=== PATIENT | male | born 1970 | race Caucasian/White ===

== ENCOUNTER 2019-08-14 16:10 | Inpatient (IN) | payer MEDICAID ==
[~2019-08-14] VITALS: Ht 172.7 cm; Wt 122.0 kg
[~2019-08-14 16:10] MED LIST: ATOR40TA78 PO; BUME1TAB21 PO; CARV3.1212 PO; ERGO500017 PO; FERR-51 PO; FLUT16SP24 NAS; HYDR-3343 PO; INSU100I13 SQ-INSULIN; IPRA3AMP30 HHN; ISOS30TA8 PO; LISI5TAB7 PO; METO2.5T PO; SEVE800T8 PO; TAMS-11 PO; Tamsulosin PO
--- NOTE | 2019-08-14 16:44 | NUR ---
SHORTNESS OF BREATH DEVELOPING SINCE LAST NIGHT WITH PEDAL EDEMA FOR A FEW WEEKS
[2019-08-14] MEDS ORDERED: SODIUM CHLORIDE FLUSH 10ML SYR IVF ONE (17:00)
--- NOTE | 2019-08-14 17:17 | NUR ---
ATTEMPTED TO ESTABLISH IV X2, UNSUCCESSFUL.
[2019-08-14 17:25] LABS: BASOPHILS # (AUTO) 0.04 x10^3/uL (0-0.1); BASOPHILS % (AUTO) 0 % (0-1); EOSINOPHILS # (AUTO) 0.13 x10^3/uL (0-0.4); EOSINOPHILS % (AUTO) 2 % (1-7); LYMPHOCYTES # (AUTO) 1.73 x10^3/uL (1-3.4); LYMPHOCYTES % (AUTO) 20 % (22-44); MD NO; MEAN CORPUSCULAR HEMOGLOBIN 28.5 pg (27.5-34.5); MEAN CORPUSCULAR HGB CONC 32.1 g/dL (33.2-36.2); MEAN CORPUSCULAR VOLUME 88.9 fL (81-97); MEAN PLATELET VOLUME 8.6 fL (7.4-10.4); MONOCYTES # (AUTO) 0.64 x10^3/uL (0.2-0.8); MONOCYTES % (AUTO) 7 % (2-9); NEUTROPHILS # (AUTO) 6.34 x10^3/uL (1.8-6.8); NEUTROPHILS % (AUTO) 71 % (42-75); PLATELET COUNT 201 x10^3/uL (130-400); RED CELL DISTRIBUTION WIDTH 15.6 % (9.4-14.8)
[2019-08-14 17:36] LABS: INTERNATIONAL NORMALIZED RATIO 1.06 (0.93-1.1); PROTHROMBIN TIME 11.1 Seconds (9.6-11.5)
[2019-08-14 17:38] LABS: ALANINE AMINOTRANSFERASE 20 U/L (12-78); ALBUMIN 1.6 g/dL (3.4-5.0); ANION GAP 7 mmol/L (5-15); CALCIUM 7.8 mg/dL (8.5-10.1); CHLORIDE 113 mmol/L (98-107); CREATININE 4.55 mg/dL (0.7-1.3)
[2019-08-14 17:42] LABS: ALKALINE PHOSPHATASE 105 U/L (45-117); BILIRUBIN,TOTAL 0.2 mg/dL (0.2-1.0); TOTAL PROTEIN 5.7 g/dL (6.4-8.2)
[2019-08-14 17:46] LABS: TROPONIN I 0.126 ng/mL (0.000-0.045)
[2019-08-14] MEDS ORDERED: ASPIRIN 81 MG TABLET CHEW ONE (18:05)
--- NOTE | 2019-08-14 18:17 | NUR ---
TASK RN: PT MEDICATED PER EMAR W/ ASA. ERP AT BEDSIDE TO DISCUSS POC (ADMIT), PT DEMONSTRATES UNDERSTANDING. BP/SPO2/ECG MONITORING IN PLACE. NSR ON MONITOR. RR WNL,SPO2 >90% ON RA. IV ESTABLISHED.
[2019-08-14] MEDS ORDERED: FUROSEMIDE 100 MG/10 ML IV ONE (18:30)
[2019-08-14] MEDS ORDERED: ASPIRIN 81 MG TABLET CHEW PO ONE (18:30)
[2019-08-14] MEDS ORDERED: FUROSEMIDE 40 MG/4 ML ONE (18:40)
--- NOTE | 2019-08-14 18:46 | NUR ---
hospitalist at bedside examining pt
[2019-08-14] MEDS ORDERED: ONDANSETRON ODT 4 MG PO PRN (19:00)
[2019-08-14] MEDS ORDERED: POLYETHYLENE GLYCOL 17 GM PACKET PO PRN (19:00)
[2019-08-14] MEDS ORDERED: hydrALAzine 20 MG/ML, 1ML IVPush PRN (19:00)
--- NOTE | 2019-08-14 19:00 | NUR ---
REPORT FROM SATNAM BUCKNER. PT [place]ING [place] CL[place]. EVEN/REGULAR RESPIRATIONS. SPO2 >90% ON RA. PT REPORTS SOME IMPROVEMENT IN S/S WITH MEDICATIONS. BP/SPO2/ECG MONITORING IN PLACE. NSR ON MONITOR. AWAITING ADMIT
[2019-08-14] MEDS ORDERED: DEXTROSE 4 GM TAB.CHEW PO PRN (19:30)
[2019-08-14] MEDS ORDERED: TAMSULOSIN 0.4 MG CAP.ER.24H PO ONE (19:30)
[2019-08-14] MEDS ORDERED: DEXTROSE 50%, 50ML SYRINGE IVPush PRN (19:30)
[2019-08-14] MEDS ORDERED: GLUCAGON 1 MG IM PRN (19:30)
--- NOTE | 2019-08-14 19:49 | NUR ---
REPORT TO VELASQUEZ PATEL RN. PT PREPARED FOR TRANSPORT.
[2019-08-14 20:37] VITALS: BP 165/99
[2019-08-14 20:57] VITALS: BP 165/99
[2019-08-14] MEDS ORDERED: ATORVASTATIN 10 MG TABLET PO SCH (21:00)
[2019-08-14] MEDS: HEPARIN 5,000 UNITS/ML, 1ML SQ SCH (21:26)
[2019-08-14] MEDS: GABAPENTIN 100 MG CAPSULE PO SCH (21:27)
[2019-08-14] MEDS: SODIUM CHLORIDE FLUSH 10ML SYR IVF SCH (21:28)
[2019-08-14] MEDS: INSULIN LISPRO 100 UNITS/ML, PEN SQ-INSULIN SCH (21:28)
[2019-08-14] MEDS ORDERED: ALBUTEROL/IPRATROPIUM 2.5MG/0.5MG, 3 ML ONE (21:40)
[2019-08-14] MEDS: INSULIN GLARGINE 100 UNITS/ML, PEN SQ-INSULIN SCH (23:02)
[2019-08-15 02:59] VITALS: BP 150/92
[2019-08-15] MEDS: HEPARIN 5,000 UNITS/ML, 1ML SQ SCH ×3 (04:24→20:18)
[2019-08-15 05:19] LABS: BASOPHILS # (AUTO) 0.09 x10^3/uL (0-0.1); BASOPHILS % (AUTO) 1 % (0-1); EOSINOPHILS # (AUTO) 0.07 x10^3/uL (0-0.4); EOSINOPHILS % (AUTO) 1 % (1-7); LYMPHOCYTES # (AUTO) 1.96 x10^3/uL (1-3.4); LYMPHOCYTES % (AUTO) 23 % (22-44); MD NO; MEAN CORPUSCULAR HEMOGLOBIN 28.4 pg (27.5-34.5); MEAN CORPUSCULAR HGB CONC 32.7 g/dL (33.2-36.2); MEAN CORPUSCULAR VOLUME 86.8 fL (81-97); MEAN PLATELET VOLUME 8.7 fL (7.4-10.4); MONOCYTES # (AUTO) 0.72 x10^3/uL (0.2-0.8); MONOCYTES % (AUTO) 9 % (2-9); NEUTROPHILS # (AUTO) 5.51 x10^3/uL (1.8-6.8); NEUTROPHILS % (AUTO) 66 % (42-75); PLATELET COUNT 185 x10^3/uL (130-400)
[2019-08-15 05:34] LABS: ALBUMIN 1.7 g/dL (3.4-5.0); ANION GAP 6 mmol/L (5-15); CALCIUM 7.6 mg/dL (8.5-10.1); CHLORIDE 113 mmol/L (98-107)
[2019-08-15 05:36] LABS: CREATININE 4.44 mg/dL (0.7-1.3)
[2019-08-15] MEDS ORDERED: ALBUTEROL/IPRATROPIUM 2.5MG/0.5MG, 3 ML NPPB SCH (07:00)
[2019-08-15 07:21] VITALS: BP 156/104
[2019-08-15] MEDS: INSULIN LISPRO 100 UNITS/ML, PEN SQ-INSULIN SCH ×4 (07:56→20:18)
[2019-08-15] MEDS: FLUTICASONE NASAL SPRAY 16GM NAS SCH ×2 (09:00→20:00)
[2019-08-15] MEDS ORDERED: SODIUM BICARBONATE 650 MG TABLET PO SCH (09:00)
[2019-08-15] MEDS: TAMSULOSIN 0.4 MG CAP.ER.24H PO SCH (09:19)
[2019-08-15] MEDS: ISOSORBIDE MONONITRATE ER 30 MG TABLET PO SCH (09:19)
[2019-08-15] MEDS: SODIUM CHLORIDE FLUSH 10ML SYR IVF SCH ×2 (09:20→20:29)
[2019-08-15] MEDS: ASPIRIN 81 MG TABLET CHEW PO SCH (09:20)
[2019-08-15] MEDS: FUROSEMIDE 40 MG/4 ML IV SCH ×2 (09:20→17:04)
[2019-08-15] MEDS: SENNA/DOCUSATE TABLET PO SCH (09:25)
[2019-08-15] MEDS: CALCIUM ACETATE 667 MG CAPSULE PO SCH ×3 (10:22→20:28)
[2019-08-15] MEDS: ARANESP 100 MCG/ML **ESRD SQ SCH (10:22)
[2019-08-15] MEDS: ALBUTEROL/IPRATROPIUM 2.5MG/0.5MG, 3 ML NPPB SCH ×3 (10:25→20:36)
[2019-08-15 13:43] VITALS: BP 137/83
[2019-08-15 14:58] LABS: MICROSCOPIC AUTO
[2019-08-15 15:10] LABS: CREATININE,URINE RANDOM 49.8 mg/dL
[2019-08-15] MEDS ORDERED: TRAZODONE 50MG TABLET PO PRN (16:30)
[2019-08-15] MEDS: CARVEDILOL 6.25 MG TABLET PO SCH (17:04)
[2019-08-15] MEDS: SODIUM BICARBONATE 650 MG TABLET PO SCH (17:05)
[2019-08-15 19:00] VITALS: BP 150/90
[2019-08-15] MEDS: INSULIN GLARGINE 100 UNITS/ML, PEN SQ-INSULIN SCH (20:19)
[2019-08-15] MEDS: GABAPENTIN 100 MG CAPSULE PO SCH (20:28)
[2019-08-15] MEDS: ACETAMINOPHEN 325 MG TABLET PO PRN (20:28)
[2019-08-15] MEDS: ATORVASTATIN 40 MG TABLET PO SCH (20:28)
[2019-08-16 02:01] VITALS: BP 160/80
[2019-08-16] MEDS: ALBUTEROL/IPRATROPIUM 2.5MG/0.5MG, 3 ML NPPB SCH ×4 (02:11→18:00)
[2019-08-16] MEDS: HEPARIN 5,000 UNITS/ML, 1ML SQ SCH ×3 (05:00→21:00)
[2019-08-16 05:30] LABS: ALBUMIN 1.7 g/dL (3.4-5.0); ANION GAP 8 mmol/L (5-15); CHLORIDE 113 mmol/L (98-107); CREATININE 4.53 mg/dL (0.7-1.3)
[2019-08-16] MEDS: CARVEDILOL 6.25 MG TABLET PO SCH (05:50)
[2019-08-16] MEDS: INSULIN LISPRO 100 UNITS/ML, PEN SQ-INSULIN SCH ×4 (07:00→21:10)
[2019-08-16 07:34] VITALS: BP 156/91
[2019-08-16] MEDS: METOLAZONE 2.5 MG TABLET PO SCH (08:01)
[2019-08-16] MEDS: SODIUM BICARBONATE 650 MG TABLET PO SCH ×3 (08:01→17:08)
[2019-08-16] MEDS: CALCIUM ACETATE 667 MG CAPSULE PO SCH ×3 (08:02→20:51)
[2019-08-16] MEDS: ISOSORBIDE MONONITRATE ER 30 MG TABLET PO SCH (08:02)
[2019-08-16] MEDS: TAMSULOSIN 0.4 MG CAP.ER.24H PO SCH (08:02)
[2019-08-16] MEDS: FUROSEMIDE 40 MG/4 ML IV SCH ×2 (08:02→17:07)
[2019-08-16] MEDS: ASPIRIN 81 MG TABLET CHEW PO SCH (08:02)
[2019-08-16] MEDS: SENNA/DOCUSATE TABLET PO SCH (08:03)
[2019-08-16] MEDS: SODIUM CHLORIDE FLUSH 10ML SYR IVF SCH ×2 (09:00→20:52)
[2019-08-16] MEDS: FLUTICASONE NASAL SPRAY 16GM NAS SCH ×2 (11:00→15:01)
[2019-08-16 14:00] VITALS: BP 158/99
[2019-08-16] MEDS ORDERED: ALBUTEROL/IPRATROPIUM 2.5MG/0.5MG, 3 ML NPPB SCH (15:00)
[2019-08-16] MEDS ORDERED: ALBUTEROL SULFATE 2.5MG/0.5ML NPPB PRN (15:00)
[2019-08-16] MEDS: CARVEDILOL 12.5 MG TABLET PO SCH (16:34)
[2019-08-16] MEDS: ALBUTEROL/IPRATROPIUM 2.5MG/0.5MG, 3 ML NPPB PRN (16:51)
[2019-08-16 19:41] VITALS: BP 145/83
[2019-08-16] MEDS: INSULIN GLARGINE 100 UNITS/ML, PEN SQ-INSULIN SCH (20:50)
[2019-08-16] MEDS: GABAPENTIN 100 MG CAPSULE PO SCH (20:51)
[2019-08-16] MEDS: ATORVASTATIN 40 MG TABLET PO SCH (20:51)
[2019-08-16 23:24] VITALS: BP 126/75
[2019-08-17] MEDS: ALBUTEROL/IPRATROPIUM 2.5MG/0.5MG, 3 ML NPPB SCH ×7 (00:10→22:25)
[2019-08-17] MEDS: HEPARIN 5,000 UNITS/ML, 1ML SQ SCH ×3 (05:00→21:00)
[2019-08-17 05:32] LABS: ALBUMIN 1.7 g/dL (3.4-5.0); ANION GAP 8 mmol/L (5-15); CALCIUM 7.6 mg/dL (8.5-10.1); CHLORIDE 111 mmol/L (98-107); CREATININE 4.74 mg/dL (0.7-1.3)
[2019-08-17] MEDS: CARVEDILOL 12.5 MG TABLET PO SCH ×2 (06:28→17:53)
[2019-08-17 07:10] VITALS: BP 121/73
[2019-08-17] MEDS: INSULIN LISPRO 100 UNITS/ML, PEN SQ-INSULIN SCH ×4 (07:20→21:08)
[2019-08-17] MEDS: ISOSORBIDE MONONITRATE ER 30 MG TABLET PO SCH (08:25)
[2019-08-17] MEDS: METOLAZONE 2.5 MG TABLET PO SCH (08:25)
[2019-08-17] MEDS: ASPIRIN 81 MG TABLET CHEW PO SCH (08:25)
[2019-08-17] MEDS: CALCIUM ACETATE 667 MG CAPSULE PO SCH ×3 (08:25→21:06)
[2019-08-17] MEDS: SODIUM BICARBONATE 650 MG TABLET PO SCH ×3 (08:25→17:53)
[2019-08-17] MEDS: TAMSULOSIN 0.4 MG CAP.ER.24H PO SCH (08:25)
[2019-08-17] MEDS: FUROSEMIDE 40 MG/4 ML IV SCH ×2 (08:25→16:36)
[2019-08-17] MEDS: SENNA/DOCUSATE TABLET PO SCH (08:26)
[2019-08-17] MEDS: SODIUM CHLORIDE FLUSH 10ML SYR IVF SCH ×2 (08:30→21:00)
[2019-08-17] MEDS: FLUTICASONE NASAL SPRAY 16GM NAS SCH ×2 (09:05→21:06)
[2019-08-17 12:57] VITALS: BP 149/89
[2019-08-17 16:35] VITALS: BP 166/100
[2019-08-17] MEDS: ACETAMINOPHEN 325 MG TABLET PO PRN (16:37)
[2019-08-17 18:54] VITALS: BP 152/91
[2019-08-17] MEDS: GABAPENTIN 100 MG CAPSULE PO SCH (21:06)
[2019-08-17] MEDS: ATORVASTATIN 40 MG TABLET PO SCH (21:06)
[2019-08-17] MEDS: INSULIN GLARGINE 100 UNITS/ML, PEN SQ-INSULIN SCH (21:07)
[2019-08-17] MEDS: OXYcodone IR 5MG TABLET PO PRN (21:50)
[2019-08-18 00:15] VITALS: BP 150/88
[2019-08-18] MEDS: HEPARIN 5,000 UNITS/ML, 1ML SQ SCH ×3 (05:00→21:00)
[2019-08-18 05:37] LABS: ANION GAP 7 mmol/L (5-15); CALCIUM 7.8 mg/dL (8.5-10.1); CHLORIDE 110 mmol/L (98-107); CREATININE 4.95 mg/dL (0.7-1.3)
[2019-08-18] MEDS: CARVEDILOL 12.5 MG TABLET PO SCH (06:35)
[2019-08-18] MEDS: ALBUTEROL/IPRATROPIUM 2.5MG/0.5MG, 3 ML NPPB SCH ×4 (07:20→20:52)
[2019-08-18] MEDS: INSULIN LISPRO 100 UNITS/ML, PEN SQ-INSULIN SCH ×4 (07:38→21:00)
[2019-08-18 07:54] VITALS: BP 146/90
[2019-08-18] MEDS: SODIUM BICARBONATE 650 MG TABLET PO SCH ×3 (07:55→16:36)
[2019-08-18] MEDS: ISOSORBIDE MONONITRATE ER 30 MG TABLET PO SCH (07:55)
[2019-08-18] MEDS: TAMSULOSIN 0.4 MG CAP.ER.24H PO SCH (07:55)
[2019-08-18] MEDS: CALCIUM ACETATE 667 MG CAPSULE PO SCH ×3 (07:56→21:41)
[2019-08-18] MEDS: ASPIRIN 81 MG TABLET CHEW PO SCH (07:56)
[2019-08-18] MEDS: METOLAZONE 2.5 MG TABLET PO SCH (07:56)
[2019-08-18] MEDS: FUROSEMIDE 40 MG/4 ML IV SCH ×2 (07:58→16:36)
[2019-08-18] MEDS: SODIUM CHLORIDE FLUSH 10ML SYR IVF SCH ×2 (07:59→21:45)
[2019-08-18] MEDS: SENNA/DOCUSATE TABLET PO SCH (07:59)
[2019-08-18] MEDS: FLUTICASONE NASAL SPRAY 16GM NAS SCH ×2 (08:08→21:59)
[2019-08-18 14:15] VITALS: BP 145/79
[2019-08-18] MEDS: ALBUTEROL/IPRATROPIUM 2.5MG/0.5MG, 3 ML NPPB PRN (15:59)
[2019-08-18] MEDS ORDERED: ALBUTEROL/IPRATROPIUM 2.5MG/0.5MG, 3 ML NEB ONE (16:00)
[2019-08-18 16:34] VITALS: BP 150/89
[2019-08-18 18:01] VITALS: BP 139/82
[2019-08-18] MEDS: CARVEDILOL 25 MG TABLET PO SCH (18:02)
[2019-08-18 20:45] VITALS: BP 150/81
[2019-08-18] MEDS: ATORVASTATIN 40 MG TABLET PO SCH (21:41)
[2019-08-18] MEDS: GABAPENTIN 100 MG CAPSULE PO SCH (21:41)
[2019-08-18] MEDS: INSULIN GLARGINE 100 UNITS/ML, PEN SQ-INSULIN SCH (21:42)
[2019-08-18] MEDS: CYCLOBENZAPRINE 10 MG TABLET PO PRN (21:59)
[2019-08-19 02:01] VITALS: BP 146/88
[2019-08-19] MEDS: HEPARIN 5,000 UNITS/ML, 1ML SQ SCH ×3 (05:00→21:00)
[2019-08-19 05:19] VITALS: BP 156/94
[2019-08-19] MEDS: CARVEDILOL 25 MG TABLET PO SCH ×2 (05:21→16:39)
[2019-08-19 05:44] LABS: ANION GAP 8 mmol/L (5-15); CALCIUM 7.7 mg/dL (8.5-10.1); CHLORIDE 110 mmol/L (98-107)
[2019-08-19 05:45] LABS: CREATININE 5.26 mg/dL (0.7-1.3)
[2019-08-19] MEDS: INSULIN LISPRO 100 UNITS/ML, PEN SQ-INSULIN SCH ×4 (07:00→22:19)
[2019-08-19] MEDS: ALBUTEROL/IPRATROPIUM 2.5MG/0.5MG, 3 ML NPPB SCH ×4 (07:37→20:00)
[2019-08-19] MEDS: SENNA/DOCUSATE TABLET PO SCH (09:00)
[2019-08-19] MEDS: TAMSULOSIN 0.4 MG CAP.ER.24H PO SCH (09:05)
[2019-08-19] MEDS: SODIUM BICARBONATE 650 MG TABLET PO SCH ×3 (09:05→16:39)
[2019-08-19] MEDS: METOLAZONE 2.5 MG TABLET PO SCH (09:05)
[2019-08-19] MEDS: ASPIRIN 81 MG TABLET CHEW PO SCH (09:06)
[2019-08-19] MEDS: ISOSORBIDE MONONITRATE ER 30 MG TABLET PO SCH (09:06)
[2019-08-19] MEDS: CALCIUM ACETATE 667 MG CAPSULE PO SCH ×3 (09:06→16:39)
[2019-08-19 09:10] VITALS: BP 136/88
[2019-08-19] MEDS: CYCLOBENZAPRINE 10 MG TABLET PO PRN ×2 (09:20→22:25)
[2019-08-19] MEDS: FUROSEMIDE 40 MG/4 ML IV SCH ×2 (09:21→16:39)
[2019-08-19] MEDS: SODIUM CHLORIDE FLUSH 10ML SYR IVF SCH ×2 (09:21→21:00)
[2019-08-19] MEDS: FLUTICASONE NASAL SPRAY 16GM NAS SCH ×2 (09:27→22:12)
[2019-08-19] MEDS: GUAIFENESIN 200 MG TABLET PO SCH ×3 (11:15→22:11)
[2019-08-19 12:30] VITALS: BP 157/91
[2019-08-19] MEDS: INSULIN GLARGINE 100 UNITS/ML, PEN SQ-INSULIN SCH (21:00)
[2019-08-19 21:33] VITALS: BP 144/89
[2019-08-19] MEDS: ATORVASTATIN 40 MG TABLET PO SCH (22:12)
[2019-08-19] MEDS: MONTELUKAST 10 MG TABLET PO SCH (22:12)
[2019-08-19] MEDS: GABAPENTIN 100 MG CAPSULE PO SCH (22:20)
[2019-08-20 02:27] VITALS: BP 134/83
[2019-08-20] MEDS: HEPARIN 5,000 UNITS/ML, 1ML SQ SCH ×3 (05:00→21:00)
[2019-08-20 05:14] LABS: ANION GAP 8 mmol/L (5-15); CHLORIDE 109 mmol/L (98-107); CREATININE 5.73 mg/dL (0.7-1.3)
[2019-08-20] MEDS: GUAIFENESIN 200 MG TABLET PO SCH ×4 (05:45→22:44)
[2019-08-20] MEDS: CARVEDILOL 25 MG TABLET PO SCH ×2 (05:46→17:23)
[2019-08-20] MEDS: ALBUTEROL/IPRATROPIUM 2.5MG/0.5MG, 3 ML NPPB SCH ×3 (07:14→21:00)
[2019-08-20 07:28] VITALS: BP 126/81
[2019-08-20] MEDS: CYCLOBENZAPRINE 10 MG TABLET PO PRN ×2 (08:16→17:23)
[2019-08-20] MEDS: SENNA/DOCUSATE TABLET PO SCH (08:16)
[2019-08-20] MEDS: SODIUM BICARBONATE 650 MG TABLET PO SCH ×3 (08:16→17:23)
[2019-08-20] MEDS: INSULIN LISPRO 100 UNITS/ML, PEN SQ-INSULIN SCH ×4 (08:16→21:00)
[2019-08-20] MEDS: TAMSULOSIN 0.4 MG CAP.ER.24H PO SCH (08:16)
[2019-08-20] MEDS: CALCIUM ACETATE 667 MG CAPSULE PO SCH ×3 (08:17→17:23)
[2019-08-20] MEDS: FLUTICASONE NASAL SPRAY 16GM NAS SCH ×2 (08:17→22:45)
[2019-08-20] MEDS: SODIUM CHLORIDE FLUSH 10ML SYR IVF SCH ×2 (08:17→22:33)
[2019-08-20] MEDS: ASPIRIN 81 MG TABLET CHEW PO SCH (08:17)
[2019-08-20] MEDS: FUROSEMIDE 40 MG/4 ML IV SCH ×2 (08:17→17:22)
[2019-08-20] MEDS: ISOSORBIDE MONONITRATE ER 30 MG TABLET PO SCH (08:17)
[2019-08-20 19:49] VITALS: BP 138/83
[2019-08-20] MEDS: GABAPENTIN 100 MG CAPSULE PO SCH (22:44)
[2019-08-20] MEDS: MONTELUKAST 10 MG TABLET PO SCH (22:44)
[2019-08-20] MEDS: ATORVASTATIN 40 MG TABLET PO SCH (22:44)
[2019-08-20] MEDS: INSULIN GLARGINE 100 UNITS/ML, PEN SQ-INSULIN SCH ×2 (22:48→22:50)
[2019-08-21] MEDS: CYCLOBENZAPRINE 10 MG TABLET PO PRN ×2 (02:51→17:46)
[2019-08-21] MEDS: ALBUTEROL/IPRATROPIUM 2.5MG/0.5MG, 3 ML NPPB SCH ×4 (03:00→20:11)
[2019-08-21 03:25] LABS: ALBUMIN 1.9 g/dL (3.4-5.0); ANION GAP 5 mmol/L (5-15); CALCIUM 7.8 mg/dL (8.5-10.1); CHLORIDE 108 mmol/L (98-107); CREATININE 5.24 mg/dL (0.7-1.3)
[2019-08-21] MEDS: HEPARIN 5,000 UNITS/ML, 1ML SQ SCH ×3 (05:00→20:27)
[2019-08-21] MEDS: GUAIFENESIN 200 MG TABLET PO SCH ×4 (05:47→20:27)
[2019-08-21] MEDS: CARVEDILOL 25 MG TABLET PO SCH ×2 (05:47→17:49)
[2019-08-21 07:23] VITALS: BP 150/93
[2019-08-21] MEDS: INSULIN LISPRO 100 UNITS/ML, PEN SQ-INSULIN SCH ×4 (08:20→21:53)
[2019-08-21] MEDS: CALCIUM ACETATE 667 MG CAPSULE PO SCH ×3 (08:21→17:46)
[2019-08-21] MEDS: ASPIRIN 81 MG TABLET CHEW PO SCH (08:21)
[2019-08-21] MEDS: SENNA/DOCUSATE TABLET PO SCH (08:22)
[2019-08-21] MEDS: TAMSULOSIN 0.4 MG CAP.ER.24H PO SCH (08:22)
[2019-08-21] MEDS: SODIUM BICARBONATE 650 MG TABLET PO SCH ×3 (08:22→17:46)
[2019-08-21] MEDS: FUROSEMIDE 40 MG/4 ML IV SCH ×2 (08:22→17:00)
[2019-08-21] MEDS: SODIUM CHLORIDE FLUSH 10ML SYR IVF SCH ×2 (08:22→21:51)
[2019-08-21] MEDS: FLUTICASONE NASAL SPRAY 16GM NAS SCH ×2 (08:24→20:26)
[2019-08-21] MEDS: ISOSORBIDE MONONITRATE ER 30 MG TABLET PO SCH (09:39)
[2019-08-21 13:37] VITALS: BP 139/65
[2019-08-21] MEDS: OXYcodone IR 5MG TABLET PO PRN (17:48)
[2019-08-21 20:05] VITALS: BP 122/74
[2019-08-21] MEDS: GABAPENTIN 100 MG CAPSULE PO SCH (21:50)
[2019-08-21] MEDS: MONTELUKAST 10 MG TABLET PO SCH (21:50)
[2019-08-21] MEDS: ATORVASTATIN 40 MG TABLET PO SCH (21:51)
[2019-08-21] MEDS: INSULIN GLARGINE 100 UNITS/ML, PEN SQ-INSULIN SCH (21:53)
[2019-08-22 01:23] VITALS: BP 153/87
[2019-08-22] MEDS: ALBUTEROL/IPRATROPIUM 2.5MG/0.5MG, 3 ML NPPB SCH ×4 (03:00→20:23)
[2019-08-22] MEDS: HEPARIN 5,000 UNITS/ML, 1ML SQ SCH ×3 (05:00→20:44)
[2019-08-22] MEDS: CARVEDILOL 25 MG TABLET PO SCH ×2 (05:47→17:23)
[2019-08-22] MEDS: GUAIFENESIN 200 MG TABLET PO SCH ×4 (05:47→20:44)
[2019-08-22 07:30] LABS: ALBUMIN 1.9 g/dL (3.4-5.0); ANION GAP 6 mmol/L (5-15); CALCIUM 7.4 mg/dL (8.5-10.1); CHLORIDE 106 mmol/L (98-107); CREATININE 4.59 mg/dL (0.7-1.3)
[2019-08-22 07:59] VITALS: BP 135/84
[2019-08-22] MEDS: ASPIRIN 81 MG TABLET CHEW PO SCH (08:04)
[2019-08-22] MEDS: ISOSORBIDE MONONITRATE ER 30 MG TABLET PO SCH (08:04)
[2019-08-22] MEDS: CALCIUM ACETATE 667 MG CAPSULE PO SCH ×3 (08:04→17:23)
[2019-08-22] MEDS: FLUTICASONE NASAL SPRAY 16GM NAS SCH ×2 (08:05→20:43)
[2019-08-22] MEDS: FUROSEMIDE 40 MG/4 ML IV SCH ×2 (08:05→17:23)
[2019-08-22] MEDS: SODIUM BICARBONATE 650 MG TABLET PO SCH ×3 (08:05→17:23)
[2019-08-22] MEDS: SODIUM CHLORIDE FLUSH 10ML SYR IVF SCH ×2 (08:05→20:42)
[2019-08-22] MEDS: TAMSULOSIN 0.4 MG CAP.ER.24H PO SCH (08:05)
[2019-08-22] MEDS: INSULIN LISPRO 100 UNITS/ML, PEN SQ-INSULIN SCH ×4 (08:07→20:47)
[2019-08-22] MEDS: SENNA/DOCUSATE TABLET PO SCH (08:07)
[2019-08-22] MEDS: ARANESP 100 MCG/ML **ESRD SQ SCH (11:38)
[2019-08-22 14:03] VITALS: BP 133/78
[2019-08-22] MEDS: CYCLOBENZAPRINE 10 MG TABLET PO PRN (17:22)
[2019-08-22] MEDS: OXYcodone IR 5MG TABLET PO PRN (17:22)
[2019-08-22 19:21] VITALS: BP 132/84
[2019-08-22] MEDS: MONTELUKAST 10 MG TABLET PO SCH (20:43)
[2019-08-22] MEDS: ATORVASTATIN 40 MG TABLET PO SCH (20:43)
[2019-08-22] MEDS: GABAPENTIN 100 MG CAPSULE PO SCH (20:44)
[2019-08-22] MEDS: INSULIN GLARGINE 100 UNITS/ML, PEN SQ-INSULIN SCH (20:47)
[2019-08-23 00:53] VITALS: BP 133/82
[2019-08-23] MEDS: ALBUTEROL/IPRATROPIUM 2.5MG/0.5MG, 3 ML NPPB SCH ×4 (02:48→22:20)
[2019-08-23] MEDS: HEPARIN 5,000 UNITS/ML, 1ML SQ SCH ×5 (05:00→21:31)
[2019-08-23] MEDS: CARVEDILOL 25 MG TABLET PO SCH ×2 (05:54→21:17)
[2019-08-23] MEDS: GUAIFENESIN 200 MG TABLET PO SCH ×4 (05:54→21:15)
[2019-08-23 06:36] LABS: CALCIUM 7.5 mg/dL (8.5-10.1); CHLORIDE 105 mmol/L (98-107)
[2019-08-23 06:40] LABS: ANION GAP 7 mmol/L (5-15); CREATININE 4.83 mg/dL (0.7-1.3)
[2019-08-23] MEDS: INSULIN LISPRO 100 UNITS/ML, PEN SQ-INSULIN SCH ×4 (07:00→21:00)
[2019-08-23 07:17] VITALS: BP 136/79
[2019-08-23] MEDS: FUROSEMIDE 40 MG/4 ML IV SCH ×2 (08:33→16:59)
[2019-08-23] MEDS: CALCIUM ACETATE 667 MG CAPSULE PO SCH ×3 (08:33→16:59)
[2019-08-23] MEDS: SODIUM BICARBONATE 650 MG TABLET PO SCH (08:33)
[2019-08-23] MEDS: FLUTICASONE NASAL SPRAY 16GM NAS SCH ×2 (08:34→21:18)
[2019-08-23] MEDS: SODIUM CHLORIDE FLUSH 10ML SYR IVF SCH ×2 (08:34→21:18)
[2019-08-23] MEDS: ASPIRIN 81 MG TABLET CHEW PO SCH (08:34)
[2019-08-23] MEDS: TAMSULOSIN 0.4 MG CAP.ER.24H PO SCH (08:34)
[2019-08-23] MEDS: SENNA/DOCUSATE TABLET PO SCH (08:35)
[2019-08-23] MEDS: ISOSORBIDE MONONITRATE ER 30 MG TABLET PO SCH (08:35)
[2019-08-23] MEDS: CYCLOBENZAPRINE 10 MG TABLET PO PRN ×2 (08:36→21:31)
[2019-08-23] MEDS: ACETAMINOPHEN 325 MG TABLET PO PRN ×2 (08:36→12:47)
[2019-08-23] MEDS: BENZONATATE 100 MG CAPSULE PO PRN ×2 (12:03→21:31)
[2019-08-23 14:47] VITALS: BP 133/77
[2019-08-23] MEDS: ATORVASTATIN 40 MG TABLET PO SCH (21:17)
[2019-08-23] MEDS: GABAPENTIN 100 MG CAPSULE PO SCH (21:17)
[2019-08-23] MEDS: MONTELUKAST 10 MG TABLET PO SCH (21:17)
[2019-08-23] MEDS: INSULIN GLARGINE 100 UNITS/ML, PEN SQ-INSULIN SCH (21:30)
[2019-08-23 21:48] VITALS: BP 147/84
[2019-08-24] VITALS (7 sets, daily range): BP systolic 122–157; BP diastolic 73–84
[2019-08-24] MEDS: ALBUTEROL/IPRATROPIUM 2.5MG/0.5MG, 3 ML NPPB SCH ×4 (03:30→21:00)
[2019-08-24] MEDS: HEPARIN 5,000 UNITS/ML, 1ML SQ SCH ×3 (05:00→21:00)
[2019-08-24] MEDS: GUAIFENESIN 200 MG TABLET PO SCH ×4 (05:40→21:36)
[2019-08-24] MEDS: CARVEDILOL 25 MG TABLET PO SCH ×2 (05:41→17:15)
[2019-08-24 06:21] LABS: BASOPHILS # (AUTO) 0.04 x10^3/uL (0-0.1); BASOPHILS % (AUTO) 1 % (0-1); EOSINOPHILS # (AUTO) 0.03 x10^3/uL (0-0.4); EOSINOPHILS % (AUTO) 0 % (1-7); LYMPHOCYTES # (AUTO) 1.28 x10^3/uL (1-3.4); LYMPHOCYTES % (AUTO) 15 % (22-44); MD NO; MEAN CORPUSCULAR HEMOGLOBIN 28.9 pg (27.5-34.5); MEAN CORPUSCULAR HGB CONC 32.1 g/dL (33.2-36.2); MEAN CORPUSCULAR VOLUME 89.9 fL (81-97); MEAN PLATELET VOLUME 10.3 fL (7.4-10.4); MONOCYTES % (AUTO) 11 % (2-9); NEUTROPHILS # (AUTO) 6.35 x10^3/uL (1.8-6.8); NEUTROPHILS % (AUTO) 74 % (42-75); PLATELET COUNT 108 x10^3/uL (130-400); RED CELL DISTRIBUTION WIDTH 16.8 % (9.4-14.8)
[2019-08-24 06:34] LABS: ANION GAP 6 mmol/L (5-15); CALCIUM 7.9 mg/dL (8.5-10.1); CHLORIDE 105 mmol/L (98-107)
[2019-08-24 06:39] LABS: % IRON SATURATION 10 % (20-55); ALANINE AMINOTRANSFERASE 21 U/L (12-78); ALKALINE PHOSPHATASE 104 U/L (45-117); BILIRUBIN,TOTAL 0.3 mg/dL (0.2-1.0); CREATININE 3.78 mg/dL (0.7-1.3); IRON LEVEL 24 mcg/dL (65-175); TOTAL IRON BINDING CAPACITY 249 mcg/dL (250-450); TOTAL PROTEIN 5.6 g/dL (6.4-8.2)
[2019-08-24] MEDS: INSULIN LISPRO 100 UNITS/ML, PEN SQ-INSULIN SCH ×4 (07:00→21:39)
[2019-08-24] MEDS: SENNA/DOCUSATE TABLET PO SCH (07:35)
[2019-08-24] MEDS: CALCIUM ACETATE 667 MG CAPSULE PO SCH ×3 (07:46→17:15)
[2019-08-24] MEDS: TAMSULOSIN 0.4 MG CAP.ER.24H PO SCH (07:47)
[2019-08-24] MEDS: FUROSEMIDE 40 MG/4 ML IV SCH (07:47)
[2019-08-24] MEDS: SODIUM CHLORIDE FLUSH 10ML SYR IVF SCH ×2 (07:47→21:00)
[2019-08-24] MEDS: ACETAMINOPHEN 325 MG TABLET PO PRN (07:48)
[2019-08-24] MEDS: CYCLOBENZAPRINE 10 MG TABLET PO PRN (07:48)
[2019-08-24] MEDS: ISOSORBIDE MONONITRATE ER 30 MG TABLET PO SCH (07:48)
[2019-08-24] MEDS ORDERED: MAGNESIUM OXIDE 400 MG TABLET PO ONE (08:00)
[2019-08-24] MEDS: FLUTICASONE NASAL SPRAY 16GM NAS SCH ×2 (08:07→21:00)
[2019-08-24] MEDS: BENZONATATE 100 MG CAPSULE PO PRN (08:08)
[2019-08-24] MEDS: OXYMETAZOLINE NASAL SPRAY 0.05%, 15ML NAS SCH ×2 (11:14→21:37)
[2019-08-24] MEDS: BUMETANIDE 0.25 MG/ML, 4ML IV SCH ×2 (12:59→22:39)
[2019-08-24] MEDS: GABAPENTIN 100 MG CAPSULE PO SCH ×2 (16:23→21:35)
[2019-08-24] MEDS: BUDESONIDE 0.5 MG/2 ML INHA INH SCH (21:00)
[2019-08-24] MEDS ORDERED: GABAPENTIN 100 MG CAPSULE PO SCH (21:00)
[2019-08-24] MEDS: MONTELUKAST 10 MG TABLET PO SCH (21:35)
[2019-08-24] MEDS: ATORVASTATIN 40 MG TABLET PO SCH (21:37)
[2019-08-24] MEDS: INSULIN GLARGINE 100 UNITS/ML, PEN SQ-INSULIN SCH (21:39)
[2019-08-25 02:13] VITALS: BP 120/72
[2019-08-25] MEDS: ALBUTEROL/IPRATROPIUM 2.5MG/0.5MG, 3 ML NPPB SCH ×5 (02:18→22:27)
[2019-08-25] MEDS: HEPARIN 5,000 UNITS/ML, 1ML SQ SCH ×3 (04:19→20:20)
[2019-08-25] MEDS: CARVEDILOL 25 MG TABLET PO SCH ×2 (05:09→16:45)
[2019-08-25] MEDS: GUAIFENESIN 200 MG TABLET PO SCH ×4 (05:09→20:20)
[2019-08-25 05:36] LABS: BASOPHILS # (AUTO) 0.05 x10^3/uL (0-0.1); BASOPHILS % (AUTO) 1 % (0-1); EOSINOPHILS # (AUTO) 0.07 x10^3/uL (0-0.4); EOSINOPHILS % (AUTO) 1 % (1-7); LYMPHOCYTES # (AUTO) 1.55 x10^3/uL (1-3.4); LYMPHOCYTES % (AUTO) 17 % (22-44); MD NO; MEAN CORPUSCULAR HEMOGLOBIN 28.3 pg (27.5-34.5); MEAN CORPUSCULAR HGB CONC 32.1 g/dL (33.2-36.2); MEAN CORPUSCULAR VOLUME 88.3 fL (81-97); MEAN PLATELET VOLUME 10.2 fL (7.4-10.4); MONOCYTES # (AUTO) 1.04 x10^3/uL (0.2-0.8); MONOCYTES % (AUTO) 11 % (2-9); NEUTROPHILS % (AUTO) 71 % (42-75); PLATELET COUNT 111 x10^3/uL (130-400); RED BLOOD COUNT 3.28 x10^6/uL (4.38-5.82); RED CELL DISTRIBUTION WIDTH 16.3 % (9.4-14.8)
[2019-08-25 05:42] LABS: CHLORIDE 105 mmol/L (98-107)
[2019-08-25 05:48] LABS: ALANINE AMINOTRANSFERASE 19 U/L (12-78); ALKALINE PHOSPHATASE 101 U/L (45-117); ANION GAP 5 mmol/L (5-15); BILIRUBIN,TOTAL 0.3 mg/dL (0.2-1.0); CREATININE 4.44 mg/dL (0.7-1.3); TOTAL PROTEIN 5.5 g/dL (6.4-8.2)
[2019-08-25] MEDS: BUDESONIDE 0.5 MG/2 ML INHA INH SCH ×3 (06:30→22:27)
[2019-08-25] MEDS: INSULIN LISPRO 100 UNITS/ML, PEN SQ-INSULIN SCH ×4 (08:00→20:01)
[2019-08-25] MEDS: BUMETANIDE 0.25 MG/ML, 4ML IV SCH ×2 (08:08→22:07)
[2019-08-25] MEDS: TAMSULOSIN 0.4 MG CAP.ER.24H PO SCH (08:08)
[2019-08-25] MEDS: ISOSORBIDE MONONITRATE ER 30 MG TABLET PO SCH (08:08)
[2019-08-25] MEDS: CALCIUM ACETATE 667 MG CAPSULE PO SCH ×3 (08:08→16:45)
[2019-08-25] MEDS: GABAPENTIN 100 MG CAPSULE PO SCH ×2 (08:09→22:08)
[2019-08-25] MEDS: OXYMETAZOLINE NASAL SPRAY 0.05%, 15ML NAS SCH ×2 (08:10→22:06)
[2019-08-25] MEDS: SODIUM CHLORIDE FLUSH 10ML SYR IVF SCH ×2 (08:10→22:08)
[2019-08-25] MEDS: FLUTICASONE NASAL SPRAY 16GM NAS SCH ×2 (08:10→22:06)
[2019-08-25] MEDS: SENNA/DOCUSATE TABLET PO SCH (08:10)
[2019-08-25 09:35] VITALS: BP 127/78
[2019-08-25] MEDS: CYCLOBENZAPRINE 10 MG TABLET PO PRN ×2 (12:09→22:07)
[2019-08-25 15:33] VITALS: BP 134/79
[2019-08-25 19:59] VITALS: BP 117/72
[2019-08-25] MEDS: INSULIN GLARGINE 100 UNITS/ML, PEN SQ-INSULIN SCH (22:07)
[2019-08-25] MEDS: ATORVASTATIN 40 MG TABLET PO SCH (22:07)
[2019-08-25] MEDS: MONTELUKAST 10 MG TABLET PO SCH (22:08)
[2019-08-26] MEDS: ALBUTEROL/IPRATROPIUM 2.5MG/0.5MG, 3 ML NPPB SCH ×4 (02:27→20:24)
[2019-08-26 03:24] VITALS: BP 151/86
[2019-08-26 03:51] LABS: BASOPHILS # (AUTO) 0.03 x10^3/uL (0-0.1); BASOPHILS % (AUTO) 0 % (0-1); EOSINOPHILS # (AUTO) 0.14 x10^3/uL (0-0.4); EOSINOPHILS % (AUTO) 1 % (1-7); LYMPHOCYTES # (AUTO) 1.41 x10^3/uL (1-3.4); LYMPHOCYTES % (AUTO) 14 % (22-44); MD NO; MEAN CORPUSCULAR HEMOGLOBIN 29.4 pg (27.5-34.5); MEAN CORPUSCULAR HGB CONC 32.8 g/dL (33.2-36.2); MEAN CORPUSCULAR VOLUME 89.7 fL (81-97); MEAN PLATELET VOLUME 10.8 fL (7.4-10.4); MONOCYTES % (AUTO) 10 % (2-9); NEUTROPHILS # (AUTO) 7.71 x10^3/uL (1.8-6.8); NEUTROPHILS % (AUTO) 75 % (42-75); PLATELET COUNT 110 x10^3/uL (130-400); RED BLOOD COUNT 3.19 x10^6/uL (4.38-5.82); RED CELL DISTRIBUTION WIDTH 16.7 % (9.4-14.8)
[2019-08-26 03:57] LABS: ALBUMIN 1.9 g/dL (3.4-5.0); ANION GAP 7 mmol/L (5-15); CHLORIDE 104 mmol/L (98-107)
[2019-08-26 03:58] LABS: CREATININE 5.23 mg/dL (0.7-1.3)
[2019-08-26] MEDS: HEPARIN 5,000 UNITS/ML, 1ML SQ SCH ×3 (05:00→22:30)
[2019-08-26] MEDS: GUAIFENESIN 200 MG TABLET PO SCH ×4 (06:00→22:30)
[2019-08-26] MEDS: CARVEDILOL 25 MG TABLET PO SCH ×2 (06:14→18:10)
[2019-08-26] MEDS: BUDESONIDE 0.5 MG/2 ML INHA INH SCH ×2 (08:00→20:24)
[2019-08-26] MEDS: ISOSORBIDE MONONITRATE ER 30 MG TABLET PO SCH (08:42)
[2019-08-26] MEDS: GABAPENTIN 100 MG CAPSULE PO SCH ×2 (08:42→22:30)
[2019-08-26] MEDS: TAMSULOSIN 0.4 MG CAP.ER.24H PO SCH (08:42)
[2019-08-26] MEDS: SODIUM CHLORIDE FLUSH 10ML SYR IVF SCH ×2 (08:44→22:30)
[2019-08-26] MEDS: BUMETANIDE 0.25 MG/ML, 4ML IV SCH ×2 (08:44→22:30)
[2019-08-26] MEDS: FLUTICASONE NASAL SPRAY 16GM NAS SCH ×2 (08:44→22:30)
[2019-08-26] MEDS: OXYMETAZOLINE NASAL SPRAY 0.05%, 15ML NAS SCH ×2 (08:45→22:30)
[2019-08-26] MEDS: SENNA/DOCUSATE TABLET PO SCH (08:45)
[2019-08-26] MEDS: CALCIUM ACETATE 667 MG CAPSULE PO SCH ×3 (08:52→18:10)
[2019-08-26] MEDS: CYCLOBENZAPRINE 10 MG TABLET PO PRN (08:52)
[2019-08-26] MEDS: INSULIN LISPRO 100 UNITS/ML, PEN SQ-INSULIN SCH ×4 (08:53→22:30)
[2019-08-26 09:40] VITALS: BP 117/72
[2019-08-26] MEDS ORDERED: FENTANYL PF 100 MCG/2ML ONE (15:38)
[2019-08-26] MEDS ORDERED: MIDAZOLAM 1 MG/ML, 5ML ONE (15:38)
[2019-08-26] MEDS ORDERED: FLUMAZENIL 0.1 MG/1 ML, 5ML ONE (15:38)
[2019-08-26] MEDS ORDERED: NALOXONE 1 MG/ML, 2ML ONE (15:38)
[2019-08-26] MEDS ORDERED: LIDOCAINE 1%, 20ML ONE (15:39)
[2019-08-26] MEDS ORDERED: CEFAZOLIN PMX 1GM/50ML 50 ML ONE (16:15)
[2019-08-26 17:46] VITALS: BP 139/74
[2019-08-26 18:01] VITALS: BP 139/74
[2019-08-26 19:34] VITALS: BP 121/75
[2019-08-26] MEDS: ATORVASTATIN 40 MG TABLET PO SCH (22:30)
[2019-08-26] MEDS: MONTELUKAST 10 MG TABLET PO SCH (22:30)
[2019-08-26] MEDS: INSULIN GLARGINE 100 UNITS/ML, PEN SQ-INSULIN SCH (22:30)
[2019-08-27] MEDS: ALBUTEROL/IPRATROPIUM 2.5MG/0.5MG, 3 ML NPPB SCH ×4 (03:00→22:20)
[2019-08-27 03:58] VITALS: BP 125/60
[2019-08-27] MEDS: HEPARIN 5,000 UNITS/ML, 1ML SQ SCH ×3 (04:20→20:18)
[2019-08-27] MEDS: CARVEDILOL 25 MG TABLET PO SCH ×2 (05:25→18:00)
[2019-08-27] MEDS: GUAIFENESIN 200 MG TABLET PO SCH ×4 (05:26→20:18)
[2019-08-27 05:55] LABS: BASOPHILS # (AUTO) 0.07 x10^3/uL (0-0.1); BASOPHILS % (AUTO) 1 % (0-1); EOSINOPHILS # (AUTO) 0.07 x10^3/uL (0-0.4); EOSINOPHILS % (AUTO) 1 % (1-7); LYMPHOCYTES # (AUTO) 1.09 x10^3/uL (1-3.4); LYMPHOCYTES % (AUTO) 12 % (22-44); MD NO; MEAN CORPUSCULAR HEMOGLOBIN 28.3 pg (27.5-34.5); MEAN CORPUSCULAR VOLUME 88.5 fL (81-97); MEAN PLATELET VOLUME 10.6 fL (7.4-10.4); MONOCYTES # (AUTO) 0.95 x10^3/uL (0.2-0.8); MONOCYTES % (AUTO) 10 % (2-9); NEUTROPHILS # (AUTO) 7.17 x10^3/uL (1.8-6.8); NEUTROPHILS % (AUTO) 77 % (42-75); PLATELET COUNT 108 x10^3/uL (130-400); RED BLOOD COUNT 3.25 x10^6/uL (4.38-5.82); RED CELL DISTRIBUTION WIDTH 16.1 % (9.4-14.8)
[2019-08-27 06:05] LABS: ANION GAP 6 mmol/L (5-15); CALCIUM 7.9 mg/dL (8.5-10.1); CHLORIDE 102 mmol/L (98-107); CREATININE 4.66 mg/dL (0.7-1.3)
[2019-08-27] MEDS: BUMETANIDE 0.25 MG/ML, 4ML IV SCH ×2 (07:51→20:16)
[2019-08-27] MEDS: INSULIN LISPRO 100 UNITS/ML, PEN SQ-INSULIN SCH ×4 (07:51→20:18)
[2019-08-27] MEDS: CALCIUM ACETATE 667 MG CAPSULE PO SCH ×3 (07:52→17:00)
[2019-08-27] MEDS: ISOSORBIDE MONONITRATE ER 30 MG TABLET PO SCH (07:52)
[2019-08-27] MEDS: GABAPENTIN 100 MG CAPSULE PO SCH ×2 (07:52→20:17)
[2019-08-27] MEDS: TAMSULOSIN 0.4 MG CAP.ER.24H PO SCH (07:52)
[2019-08-27] MEDS: OXYMETAZOLINE NASAL SPRAY 0.05%, 15ML NAS SCH ×2 (07:53→20:19)
[2019-08-27] MEDS: FLUTICASONE NASAL SPRAY 16GM NAS SCH ×2 (07:53→20:19)
[2019-08-27 07:54] VITALS: BP 138/81
[2019-08-27] MEDS: SODIUM CHLORIDE FLUSH 10ML SYR IVF SCH ×2 (07:54→20:19)
[2019-08-27] MEDS: SENNA/DOCUSATE TABLET PO SCH (09:00)
[2019-08-27] MEDS: BUDESONIDE 0.5 MG/2 ML INHA INH SCH ×2 (09:07→22:20)
[2019-08-27 14:20] VITALS: BP 125/78
[2019-08-27] MEDS ORDERED: GABAPENTIN 100 MG CAPSULE PO ONE (16:00)
[2019-08-27] MEDS: BENZONATATE 100 MG CAPSULE PO PRN ×2 (16:32→21:06)
[2019-08-27 19:03] VITALS: BP 120/71
[2019-08-27] MEDS: MONTELUKAST 10 MG TABLET PO SCH (20:16)
[2019-08-27] MEDS: ATORVASTATIN 40 MG TABLET PO SCH (20:17)
[2019-08-27] MEDS: CYCLOBENZAPRINE 10 MG TABLET PO PRN (20:17)
[2019-08-27] MEDS: INSULIN GLARGINE 100 UNITS/ML, PEN SQ-INSULIN SCH (21:00)
[2019-08-28] MEDS: CYCLOBENZAPRINE 10 MG TABLET PO PRN ×2 (00:20→08:00)
[2019-08-28] MEDS: HEPARIN 5,000 UNITS/ML, 1ML SQ SCH ×2 (05:00→12:16)
[2019-08-28] MEDS: GUAIFENESIN 200 MG TABLET PO SCH ×3 (05:03→16:00)
[2019-08-28] MEDS: ALBUTEROL/IPRATROPIUM 2.5MG/0.5MG, 3 ML NPPB SCH ×2 (05:13→15:00)
[2019-08-28] MEDS: BUDESONIDE 0.5 MG/2 ML INHA INH SCH (05:13)
[2019-08-28 05:21] VITALS: BP 127/73
[2019-08-28 05:21] LABS: BASOPHILS # (AUTO) 0.02 x10^3/uL (0-0.1); BASOPHILS % (AUTO) 0 % (0-1); EOSINOPHILS # (AUTO) 0.11 x10^3/uL (0-0.4); EOSINOPHILS % (AUTO) 1 % (1-7); LYMPHOCYTES # (AUTO) 1.28 x10^3/uL (1-3.4); LYMPHOCYTES % (AUTO) 14 % (22-44); MD NO; MEAN CORPUSCULAR HEMOGLOBIN 28.6 pg (27.5-34.5); MEAN CORPUSCULAR VOLUME 89.3 fL (81-97); MEAN PLATELET VOLUME 11.1 fL (7.4-10.4); MONOCYTES # (AUTO) 1.31 x10^3/uL (0.2-0.8); MONOCYTES % (AUTO) 14 % (2-9); NEUTROPHILS # (AUTO) 6.42 x10^3/uL (1.8-6.8); NEUTROPHILS % (AUTO) 70 % (42-75); PLATELET COUNT 115 x10^3/uL (130-400); RED BLOOD COUNT 3.19 x10^6/uL (4.38-5.82); RED CELL DISTRIBUTION WIDTH 16.4 % (9.4-14.8)
[2019-08-28] MEDS: CARVEDILOL 25 MG TABLET PO SCH (05:27)
[2019-08-28 05:28] LABS: CHLORIDE 99 mmol/L (98-107)
[2019-08-28 05:33] LABS: ANION GAP 6 mmol/L (5-15); CALCIUM 7.8 mg/dL (8.5-10.1); CREATININE 4.34 mg/dL (0.7-1.3)
[2019-08-28] MEDS: INSULIN LISPRO 100 UNITS/ML, PEN SQ-INSULIN SCH ×3 (07:58→16:00)
[2019-08-28] MEDS: CALCIUM ACETATE 667 MG CAPSULE PO SCH ×2 (07:59→12:00)
[2019-08-28] MEDS: BUMETANIDE 0.25 MG/ML, 4ML IV SCH (07:59)
[2019-08-28] MEDS: OXYMETAZOLINE NASAL SPRAY 0.05%, 15ML NAS SCH (08:00)
[2019-08-28] MEDS: GABAPENTIN 100 MG CAPSULE PO SCH (08:00)
[2019-08-28] MEDS: ISOSORBIDE MONONITRATE ER 30 MG TABLET PO SCH (08:00)
[2019-08-28] MEDS: SODIUM CHLORIDE FLUSH 10ML SYR IVF SCH (08:00)
[2019-08-28] MEDS: BENZONATATE 100 MG CAPSULE PO PRN (08:00)
[2019-08-28] MEDS: FLUTICASONE NASAL SPRAY 16GM NAS SCH (08:01)
[2019-08-28] MEDS: TAMSULOSIN 0.4 MG CAP.ER.24H PO SCH (08:01)
[2019-08-28] MEDS: SENNA/DOCUSATE TABLET PO SCH (08:01)
[2019-08-28 08:02] VITALS: BP 120/76
[2019-08-28 14:14] VITALS: BP 153/76
[2019-08-28] MEDS ORDERED: INSU100I13 SQ-INSULIN (17:44)
[2019-08-28] MEDS ORDERED: BUDE10.2 INH (17:44)
[2019-08-28] MEDS ORDERED: CARV25TA12 PO (17:44)
[2019-08-28] MEDS ORDERED: CALC667C PO (17:44)
[2019-08-28] MEDS ORDERED: HYDR-3342 PO (17:44)
[2019-08-28] MEDS ORDERED: CYCL-259 PO (17:44)
[2019-08-28] MEDS ORDERED: BUME1TAB21 PO (17:44)
[2019-08-28] MEDS ORDERED: GABA-826 PO (17:44)
== END 2019-08-28 18:30 | disposition home or self-care (01) | DRG 673 ==
LOC: ED 18:15 → EDIP 19:47 → 5SO 20:11 → 4EST 08-24 16:54
PROVIDERS: ADMIT Family Medicine; ATTEND Family Medicine
PROC: 02HV33Z Insertion of Infusion Device into Superior Vena Cava, Percutaneous Approach (ICD-10-PCS; principal; 2019-08-20)
PROC: B548ZZA Ultrasonography of Superior Vena Cava, Guidance (ICD-10-PCS; 2019-08-20)
PROC: 5A1D70Z Performance of Urinary Filtration, Intermittent, Less than 6 Hours Per Day (ICD-10-PCS; 2019-08-20)
PROC: 5A1D70Z Performance of Urinary Filtration, Intermittent, Less than 6 Hours Per Day (ICD-10-PCS; 2019-08-21)
PROC: 5A1D70Z Performance of Urinary Filtration, Intermittent, Less than 6 Hours Per Day (ICD-10-PCS; 2019-08-23)
PROC: 0JH63XZ Insertion of Tunneled Vascular Access Device into Chest Subcutaneous Tissue and Fascia, Percutaneous Approach (ICD-10-PCS; 2019-08-26)
PROC: 02HV33Z Insertion of Infusion Device into Superior Vena Cava, Percutaneous Approach (ICD-10-PCS; 2019-08-26)
PROC: B5181ZA Fluoroscopy of Superior Vena Cava using Low Osmolar Contrast, Guidance (ICD-10-PCS; 2019-08-26)
PROC: B548ZZA Ultrasonography of Superior Vena Cava, Guidance (ICD-10-PCS; 2019-08-26)
PROC: 5A1D70Z Performance of Urinary Filtration, Intermittent, Less than 6 Hours Per Day (ICD-10-PCS; 2019-08-26)
PROC: 5A1D70Z Performance of Urinary Filtration, Intermittent, Less than 6 Hours Per Day (ICD-10-PCS; 2019-08-27)
PROC: 5A1D70Z Performance of Urinary Filtration, Intermittent, Less than 6 Hours Per Day (ICD-10-PCS; 2019-08-28)
DX: N17.9 Acute kidney failure, unspecified (principal); I50.43 Acute on chronic combined systolic (congestive) and diastolic (congestive) heart failure; J18.9 Pneumonia, unspecified organism; J96.01 Acute respiratory failure with hypoxia; I13.2 Hypertensive heart and chronic kidney disease with heart failure and with stage 5 chronic kidney disease, or end stage renal disease; F15.20 Other stimulant dependence, uncomplicated; J44.0 Chronic obstructive pulmonary disease with (acute) lower respiratory infection; I42.9 Cardiomyopathy, unspecified; N18.6 End stage renal disease; N25.81 Secondary hyperparathyroidism of renal origin; D63.8 Anemia in other chronic diseases classified elsewhere; E78.5 Hyperlipidemia, unspecified; E83.39 Other disorders of phosphorus metabolism; E83.42 Hypomagnesemia; E11.22 Type 2 diabetes mellitus with diabetic chronic kidney disease; E86.9 Volume depletion, unspecified; Z72.0 Tobacco use; Z79.82 Long term (current) use of aspirin; Z79.4 Long term (current) use of insulin; Z80.6 Family history of leukemia; Z82.49 Family history of ischemic heart disease and other diseases of the circulatory system; Z86.14 Personal history of Methicillin resistant Staphylococcus aureus infection; Z99.2 Dependence on renal dialysis
CPT/HCPCS: 36415; 77001; 84145; 96374; 99285; J3490; J7620; J7626; 36556; 36558; 71045; 76937; 80048; 80053; 80069; 81001; 82040; 82306; 82330; 82570; 82728; 82962; 83540; 83550; 83735; 83880; 83970; 84100; 84156; 84484; 84550; 85025; 85610; 85730; 86704; 86706; 87340; 90935; 93005; 93321; 93325; 94640; 99156; 99157; G0378; J0690; J0882; J1644; J1940; J2250; J3010; C1750; C1751; C8924; J1642; J1815; J2310